=== PATIENT | male | born 1980 | race Caucasian/White ===

== ENCOUNTER 2022-08-10 07:31 | Outpatient (CLI) | payer BC, SELFPAY ==
[2022-08-10 10:42] LABS: Albumin* 4.9 g/dL (3.3-5.0); Chloride* 102 mmol/L (96-114); Potassium* 4.6 mmol/L (3.6-5.1); Sodium* 141 mmol/L (135-149)
[2022-08-10 10:44] LABS: Cholesterol* 217 mg/dL (90-199); Creatinine* 0.9 mg/dL (0.5-1.5); Estimated Glomerular Filt Rate 108 ml/min
[2022-08-10 10:45] LABS: Alanine Aminotransferase* 19 U/L (4-50); Alkaline Phosphatase* 81 U/L (40-150); Aspartate Amino Transferase* 37 U/L (12-35); Bilirubin Total* 0.9 mg/dL (0.1-1.5); Blood Urea Nitrogen* 19 mg/dL (5-24); Calcium* 9.8 mg/dL (8.4-10.6); Carbon Dioxide* 28 mmol/L (20-32); Glucose* 97 mg/dL (60-115); Total Protein* 7.4 g/dL (6.0-8.3); Triglycerides* 44 mg/dL (40-149)
[2022-08-10 10:46] LABS: HDL Cholesterol* 56 mg/dL (>=40); LDL Cholesterol Calculated 152 mg/dL (<100)
== END 2022-08-10 07:32 | disposition home or self-care (01) ==
PROVIDERS: PCP Family Medicine; Visit Provider Family Medicine
DX: Z00.00 Encounter for general adult medical examination without abnormal findings (principal); E78.5 Hyperlipidemia, unspecified
CPT/HCPCS: 80053; 80061

== ENCOUNTER 2024-10-23 09:15 | Outpatient (CLI) | payer BC, SELFPAY | END 2024-10-23 09:16 | disposition home or self-care (01) | LOC: NFLDREF 10-25 15:57 | PROVIDERS: PCP Family Medicine; Referring Provider Family Medicine; Visit Provider Family Medicine | DX: Z13.1 Encounter for screening for diabetes mellitus (principal); Z13.6 Encounter for screening for cardiovascular disorders | CPT/HCPCS: 80053; 80061; 82947 ==

== ENCOUNTER 2024-11-02 09:27 | Outpatient (CLI) | payer BC, SELFPAY ==
--- NOTE | 2024-11-02 09:50 | P.ANES_ITS ---
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
--- NOTE | 2024-11-02 09:50 | W.ANESCHARGE ---
Anesthesia Charges Start Date/Time Anesthesia Start Date: 11/02/24 Anesthesia Start Time: 10:05 Stop Date/Time Anesthesia Stop Date: 11/02/24 Anesthesia Stop Time: 10:27 Coding CPT Codes CPT Codes: WINNIE LWR INTST SCR COLSC - [id number] ([id number]) P1 - NORMAL HEALTHY PATIENT, QX - SWING MANAGER SVJamila W/ MED DIRECTION, QK - BOOTH OPERATOR 2-4 CNCRNT ANESaleem PROC
--- NOTE | 2024-11-02 12:11 | P.ANES_ITS ---
Anesthesia Charges Start Date/Time Anesthesia Start Date: 11/02/24 Anesthesia Start Time: 10:05 Stop Date/Time Anesthesia Stop Date: 11/02/24 Anesthesia Stop Time: 10:27 Coding CPT Codes CPT Codes: WINNIE LWR INTST SCR COLSC - [id number] ([id number]) P1 - NORMAL HEALTHY PATIENT, QK - LAMINATION MACHINE OPERATOR 2-4 CNCRNT ANES PROC, QX - INSPECTOR PACKER GLASS CONTAINER SVC W/ MED DIRECTION
--- NOTE | 2024-11-02 12:11 | W.ANESCHARGE ---
Anesthesia Charges Start Date/Time Anesthesia Start Date: 11/02/24 Anesthesia Start Time: 10:05 Stop Date/Time Anesthesia Stop Date: 11/02/24 Anesthesia Stop Time: 10:27 Coding CPT Codes CPT Codes: WINNIE LWR INTST SCR COLSC - [id number] ([id number]) P1 - NORMAL HEALTHY PATIENT, QK - BUSINESS PERFORMANCE ADVISOR 2-4 CNCRNT ANES PROC, QX - OPTICAL TECHNICIAN SVC W/ MED DIRECTION
== END 2024-11-02 09:28 | disposition home or self-care (01) ==
LOC: OP CLINIC 09:27
PROVIDERS: PCP Family Medicine; Visit Provider Internal Medicine
DX: Z12.11 Encounter for screening for malignant neoplasm of colon (principal)
CPT/HCPCS: 00812; 45378; J2704